=== PATIENT | female | born 2000 | race Caucasian/White ===

== ENCOUNTER 2019-01-19 15:35 | Emergency (ER) | payer BC, MEDICAID ==
[~2019-01-19] VITALS: Ht 162.6 cm; Wt 49.4 kg
[2019-01-19 16:08] VITALS: BP 109/68
== END 2019-01-19 17:29 | disposition home or self-care (01) ==
LOC: ER 15:35
DX: S60.221A Contusion of right hand, initial encounter (principal); Z88.0 Allergy status to penicillin; W22.8XXA Striking against or struck by other objects, initial encounter; Y93.89 Activity, other specified; Y99.8 Other external cause status; Y92.89 Other specified places as the place of occurrence of the external cause
CPT/HCPCS: 73130; 81025

== ENCOUNTER 2019-10-14 02:21 | Emergency (ER) | payer MEDICAID ==
[~2019-10-14] VITALS: Ht 162.6 cm; Wt 52.2 kg
[2019-10-14 02:35] VITALS: BP 118/86
== END 2019-10-14 06:57 | disposition home or self-care (01) ==
LOC: ER 02:23
DX: S00.33XA Contusion of nose, initial encounter (principal); Y04.0XXA Assault by unarmed brawl or fight, initial encounter; Y93.89 Activity, other specified; Y92.89 Other specified places as the place of occurrence of the external cause; Y99.8 Other external cause status
CPT/HCPCS: 70486

== ENCOUNTER 2020-03-25 11:40 | Emergency (ER) | payer OTHER, MEDICAID ==
[~2020-03-25] VITALS: Ht 160 cm; Wt 53.5 kg
[2020-03-25 16:05] VITALS: BP 98/61
== END 2020-03-25 16:09 | disposition home or self-care (01) ==
LOC: ER 11:40
DX: S63.91XA Sprain of unspecified part of right wrist and hand, initial encounter (principal); Z88.0 Allergy status to penicillin; X58.XXXA Exposure to other specified factors, initial encounter; Y93.89 Activity, other specified; Y92.89 Other specified places as the place of occurrence of the external cause; Y99.8 Other external cause status
CPT/HCPCS: 29125; 73130

== ENCOUNTER 2020-05-15 22:05 | Observation (INO) | payer OTHER, MEDICAID ==
[~2020-05-15] VITALS: Ht 162.6 cm; Wt 54.9 kg
== END 2020-05-16 | disposition home or self-care (01) ==
LOC: UNDOADMOB 22:05 → LDRP 22:05 → UNDODISOB 05-16
PROVIDERS: ADMIT Obstetrics & Gynecology; ATTEND Obstetrics & Gynecology
DX: O26.892 Other specified pregnancy related conditions, second trimester (principal); R10.9 Unspecified abdominal pain; Z3A.27 27 weeks gestation of pregnancy
CPT/HCPCS: 59025; 76815; 81002; G0378

== ENCOUNTER 2020-11-06 17:18 | Emergency (ER) | payer MEDICAID, OTHER ==
[~2020-11-06] VITALS: Ht 160 cm; Wt 52.6 kg
[2020-11-06 17:35] VITALS: BP 111/77
[2020-11-06] MEDS ORDERED: methylPREDNISolone SOD SUCC 125 MG/2 ML VL IM ONE (21:00)
[2020-11-06] MEDS ORDERED: cefTRIAXone SOD 1,000 MG VL IM ONE (21:00)
== END 2020-11-06 21:49 | disposition home or self-care (01) ==
LOC: ER 17:18
DX: J02.9 Acute pharyngitis, unspecified (principal)
CPT/HCPCS: 81025; 96372; 99284; J0696; J2930

== ENCOUNTER 2021-09-15 10:30 | Emergency (ER) | payer MEDICAID ==
[~2021-09-15] VITALS: Ht 160 cm; Wt 52.6 kg
[2021-09-15 11:06] LABS: Basophils # (auto) 0 10 ^3/uL (0-0.2); Basophils % (auto) 0.4 % (0.0-2.0); Eosinophils # (auto) 0 10 ^3/uL (0-0.8); Eosinophils % (auto) 0.5 % (0.0-7.0); Hematocrit 38.1 % (36.0-46.0); Hemoglobin 12.8 g/dL (12.2-16.2); Lymphocytes % (auto) 13.6 % (10.0-50.0); Mean Corpuscular Hemoglobin 30.4 pg (28.0-32.0); Mean Corpuscular Hgb Conc. 33.6 g/dL (32.0-36.0); Mean Corpuscular Volume 90.6 fL (80.0-100.0); Monocytes # (auto) 0.4 10 ^3/uL (0-1.3); Monocytes % (auto) 5.4 % (0.0-12.0); Neutrophils # (auto) 5.9 10 ^3/uL (1.6-8.6); Neutrophils % (auto) 80.1 % (37.0-80.0); Nucleated Red Blood Cells % 0.1 %; Red Blood Cells 4.21 10^6/uL (4.0-5.20); Red Cell Distribution Width 14.6 % (11.8-14.3); White Blood Cell 7.4 10^3/uL (4.4-10.8)
[2021-09-15 11:18] LABS: Albumin 4.2 g/dL (3.4-5.0); Calcium 9.1 mg/dL (8.5-10.1); Potassium 3.9 mmol/L (3.5-5.1)
[2021-09-15 11:22] LABS: BUN/Creatinine Ratio 18.5; Bilirubin, Total 0.3 mg/dL (0.2-1.0); Total Protein 8.2 g/dL (6.4-8.2)
[2021-09-15 11:26] LABS: Urine Bacteria MOD /hpf (None Seen); Urine Blood 3+ /uL (Negative); Urine Mucus FEW (None Seen); Urine Specific Gravity 1.028 (1.001-1.035); Urine WBC 44 /hpf (0 - 5)
[2021-09-15] MEDS ORDERED: NITR-87 PO (11:32)
[2021-09-15 11:50] VITALS: BP 121/77
== END 2021-09-15 11:58 | disposition home or self-care (01) ==
LOC: ER 10:30
DX: O20.0 Threatened abortion (principal); O23.41 Unspecified infection of urinary tract in pregnancy, first trimester; N39.0 Urinary tract infection, site not specified; Z3A.01 Less than 8 weeks gestation of pregnancy; Z88.0 Allergy status to penicillin
CPT/HCPCS: 36415; 80053; 81001; 84702; 85025